=== PATIENT | male | born 1965 | race Caucasian/White ===

== ENCOUNTER 2022-01-15 12:37 | Emergency (ER) | payer OTHER ==
[~2022-01-15] VITALS: Ht 180.3 cm; Wt 99.8 kg
[2022-01-15] MEDS ORDERED: Robaxin750 MG PO (17:36)
== END 2022-01-15 17:50 | disposition home or self-care (01) ==
LOC: ER 12:37
DX: S80.02XA Contusion of left knee, initial encounter (principal); M54.50 Low back pain, unspecified; V43.52XA Car driver injured in collision with other type car in traffic accident, initial encounter; Y92.411 Interstate highway as the place of occurrence of the external cause
CPT/HCPCS: 72100; 73564; 73590; A9270